=== PATIENT | male | born 1970 | race Caucasian/White ===

== ENCOUNTER 2017-05-29 08:42 | Inpatient (IN) | payer OTHER ==
[2017-05-29] VITALS (8 sets, daily range): BP systolic 100–152; BP diastolic 58–97
[~2017-05-29] VITALS: Ht 185.4 cm; Wt 142.9 kg
--- NOTE | ~2017-05-29 | CON ---
[place], [place] REPORT OF CONSULTATION NAME: BRIAN SAM UNIT #: [id number] ROOM: 515 DOCTOR: TALHA DE LOS SANTOS MD BIRTHDATE: [birth year] DOS: REQUESTING PHYSICIAN: Dr. Ivan Manrique. REASON FOR CONSULTATION: Chest pain. ASSESSMENT: 1. Current presentation with chest pains following a bout of cough. 2. Hypertension. 3. Hyperlipidemia. 4. Chronic obstructive pulmonary disease. 5. Active tobacco abuse. 6. Morbid obesity. 7. Abnormal CT scan with possible evidence of bronchitis. 8. Negative VQ scan for pulmonary embolism. 9. Elevated troponin. PLAN: 1. Continue to cycle troponin. 2. Check CPK-MB. 3. Echocardiogram. 4. Keep patient n.p.o. for a walking stress test in the a.m. 5. Exercise, weight loss. 6. Smoking cessation. 7. Management of the patient's bronchitis will be deferred to PCP. 8. Followup in our clinic within 4-6 days upon discharge. 9. Call for any change in symptoms. HISTORY AND PHYSICAL: The patient is a pleasant 47-year-old gentleman unknown to our practice, was referred by Dr. Love for evaluation of complaint of chest pain. Apparently, the patient having these episodes for the past few months, but mainly after coughing. The patient over the past 4 days has been coughing. He had significant increase in the bouts of coughing and he had significant episode of chest pain, which was left-sided, localized and can be pinpointed, did reach 6/10, but prolonged for hours. Upon presentation, the patient was admitted from the Emergency Room and the subsequent troponin which showed as elevated troponin as noted above. From the cardiac point of view, he never had any heaviness or tightness. No jaw pain, no left arm pain, no back pain. The patient never had any symptomatic palpitation or any associated dizziness, lightheadedness or near syncope. He sleeps on 2 pillows with no reported PND, orthopnea, or pedal edema. The patient has been reporting some weakness and unsteady gait with over exertion along with shortness of breath, even though the patient claimed that his functional capacity has been steady over the past 6 months. 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 No fever, no chills, no night sweats, maintained good appetite, no weight loss. PAST MEDICAL HISTORY: As detailed in my assessment. [place], [place] REPORT OF CONSULTATION NAME: BIRAN SAM UNIT #: [id number] ROOM: [facility] DOCTOR: TALHA DE LOS SANTOS MD BIRTHDATE: [birth year] SOCIAL HISTORY: The patient continued to smoke, has been doing this since he was 7 years old, about 1 pack a day. Alcohol: The patient quit abusing alcohol long time ago and no drug abuse. CURRENT MEDICATIONS: Guaifenesin, Mobic, Claritin, Zyrtec, Levaquin, hydrochlorothiazide, Lovenox, Coreg, aspirin, Solu-Medrol, and Lipitor. ALLERGIES: The patient is allergic to PENICILLIN and IODINE. REVIEW OF SYSTEMS: Currently, the patient denies any headache, diplopia or blurry vision. No fever, no chills, no night sweats. No abdominal pain, no bright red blood per rectum. No tarry stools. The patient admits to joint pain, but no muscular pain. Admits to low back pain. No polyuria, no polydipsia. No anxiety, no depression. No skin rash. Review of other systems has been negative. PHYSICAL EXAMINATION: GENERAL: The patient is alert, oriented x 3, quite pleasant. VITAL SIGNS: Blood pressure 161/82, heart rate 69, respiratory rate of 14, temperature 97.8. HEENT: Extraocular muscles intact. Pupils equal, round, reactive to light. Conjunctivae: No pallor. Throat: No petechiae. NECK: Good carotid upstroke. Unable to appreciate any bruit, no lymphadenopathy, no thyromegaly. HEART: S1, S2 with faint holosystolic murmur left upper sternal border, distant heart sounds. No rub. No retrosternal heave. CHEST AND BACK: No deformities. LUNGS: Clear to auscultation. Decreased air movement, but no kadie wheezing or rales. ABDOMEN: Morbidly obese, soft, nontender, present bowel sounds, no masses, no bruits. LOWER EXTREMITIES: There is mild ankle edema bilateral with faint distal pulses. NEUROLOGIC: Grossly nonfocal. SKIN: No significant rash. LABORATORY DATA: EKG showed normal sinus rhythm with poor R-wave progression. LABORATORY DATA: White count is currently 17.6, hemoglobin 16.0. Potassium 3.7, glucose is 202. Hemoglobin A1c is 7. Triglyceride 339. Total cholesterol 212, LDL 113 and HDL 31. Normal thyroid function test. [place], [place] REPORT OF CONSULTATION NAME: BRIAN SAM UNIT #: [id number] ROOM: [facility] DOCTOR: TALHA DE LOS SANTOS MD BIRTHDATE: [birth year] TALHA DE LOS SANTOS MD CM:CONSTR:REPORT OF CONSULTATION 1252 05/30/172032 interface
--- NOTE | ~2017-05-29 | ST ---
[place], [place] EXERCISE STRESS TEST REPORT NAME: BRIAN SAM UNIT #: [id number] ROOM: [facility] DOCTOR: TALHA DE LOS SANTOS MD BIRTHDATE: [birth year] DOS: INDICATION: Chest pain. PROCEDURE: The patient was exercised on a treadmill using modified Adalberto protocol, the patient exercised for 8 minutes, reaching only 67% of his maximum predicted heart rate. Test was switched to a walking Lexiscan stress test. The patient was injected with Lexiscan. The patient tolerated the procedure well. There was no complaint of chest pain, chest pressure. BLOOD PRESSURE RESPONSE: Resting blood pressure 152/80 with ending blood pressure 166/100. ELECTROCARDIOGRAM INTERPRETATION: The resting electrocardiogram showing normal sinus rhythm. Following at the peak of the stress test, there was no evidence of any significant ST or T-wave changes suggestive of myocardial ischemia. No arrhythmias were noted. SUMMARY: 1. Adequate stress test with impaired functional capacity. 2. Negative treadmill stress test for stress-induced myocardial ischemia. 3. No arrhythmias were seen. 4. Slightly hypertensive at rest with hypertensive diastolic blood pressure response to exercise. 5. Stable O2 saturation with exercise, lowest measurement was 91% with activity. 6. Nuclear images will be reported separately. TALHA DE LOS SANTOS MD CM:STRESS:EXERCISE STRESS TEST REPORT [id number] TALHA DE LOS SANTOS MD
--- NOTE | ~2017-05-29 | PR ---
[place], [place] PROGRESS NOTE NAME: BRIAN SAM #: [id number] UNIT #: [id number] ROOM: 515 DOCTOR: TALHA DE LOS SANTOS MD BIRTHDATE: [birth year] DOS: SUBJECTIVE: The patient continues to have chest pain following a bout of cough, which is again localized in the left side. No symptomatic palpitation. OBJECTIVE: VITAL SIGNS: Blood pressure 145/75, heart rate 67, respiratory rate of 14, temperature 98.2. NECK: Good upstroke, no bruit. HEART: S1, S2, no rub. LUNGS: Decreased air movement, but no kadie wheezing or rales. LOWER EXTREMITIES: Mild ankle edema. LABORATORY DATA: White count 14.3, hemoglobin 15.3, potassium 4.5, GFR more than 60%. Troponin 0.084, followed by 0.082 and then 0.080, subsequent 0.066 and then 0.57. CPK and MB are normal. ASSESSMENT AND PLAN: Current presentation with atypical complaint of chest pain that is okay, is only following a bout of cough, which is also localized and reproducible, and the patient showing slightly elevated troponin in a declining fashion with normal CPK and MB. The patient is showing slight improvement. His EKG did not show any acute changes. Our plan was to proceed with stress test with Lexiscan to be done this morning. Should the stress test be normal, we will discharge the patient home with early followup within 2-4 weeks as an outpatient. The patient was advised to call back should there be any worsening of his pain at any time. Exercise and weight loss is highly recommended. The patient also was advised to call back for any worsening of his symptoms at any time. TALHA DE LOS SANTOS MD CM:PNCAMACHO 24 TALHA DE LOS SANTOS MD 05/31/172224 interface
[2017-05-29 09:00] LABS: BASO % 0.4 % (0.0-1.0); EOS # 0.1 10*3/uL (0.0-0.4); EOS % 0.9 % (1.0-4.0); HEMATOCRIT 48.7 % (42.0-52.0); HEMOGLOBIN 15.8 g/dl (14.0-18.0); LYMPH # 1.9 10*3/uL (1.3-4.4); LYMPH % 18.9 % (27.0-41.0); MEAN CELL VOLUME 98.2 fl (80.0-94.0); MEAN CORPUSCULAR HGB 31.9 pg (27.0-31.0); MEAN CORPUSCULAR HGB CONC 32.4 g/dl (33.0-37.0); MEAN PLATELET VOLUME 11.4 fl (9.6-12.3); MONO # 0.7 10*3/uL (0.1-1.0); MONO % 6.8 % (3.0-9.0); NEUT # 7.3 10*3/uL (2.3-7.9); NEUT % 72.6 % (47.0-73.0); PLATELET COUNT AUTOMATED 151 10*3/uL (130-400); RED BLOOD COUNT 4.96 10*6/uL (4.50-5.90); RED CELL DISTRI WIDTH 14.5 % (0-14.5)
[2017-05-29 09:09] LABS: ACT PARTIAL THROMBO TIME 23.2 SECONDS (20.8-31.5); INTERNATIONAL NORM RATIO 0.9 (2.0-3.5)
[2017-05-29 09:17] LABS: ALBUMIN 3.2 gm/dl (3.1-4.5); ALKALINE PHOSPHATASE 168 U/L (45-117); BUN 6 mg/dl (7-24); CHLORIDE 100 mmol/L (98-107); CREATININE 0.99 mg/dL (0.70-1.30); MAGNESIUM 2.1 mg/dL (1.5-2.1); POTASSIUM 3.8 mmol/L (3.5-5.1); SGOT/AST 19 IU/L (3-35); SGPT/ALT 36 U/L (12-78); SODIUM 137 mmol/L (136-145); TOTAL PROTEIN 7.4 gm/dL (6.4-8.2)
[2017-05-29 09:25] LABS: TROPONIN I 0.084 ng/ml (<0.045)
--- NOTE | 2017-05-29 10:30 | NUR ---
A 47, admitted to , under the services of FRENCH Borden DO with a diagnosis of CHEST PAIN. Chief complaint is LEFT SIDED CHEST TIGHTNESS. Patient arrived via bed from ER. Monitor applied. Initial assessment completed. Vital signs taken and recorded. FRENCH BORDEN DO notified of admission to the unit. Orders received. See assessment for past medical history, medications and allergies. Patient and/or family oriented to unit. [facility] visitation policy reviewed. Clothing/patient valuable form completed. TREMAINE VIGIL
[2017-05-29] MEDS ORDERED: ZESTORETIC 20-1 EAC1 PO (11:16)
[2017-05-29] MEDS ORDERED: MOBIC7.5 MG PO (12:28)
[2017-05-29] MEDS ORDERED: ASPIRIN ADULT L81 M1 PO (12:28)
[2017-05-29] MEDS ORDERED: CLARITIN10 MG PO (12:29)
[2017-05-29] MEDS ORDERED: PROAIR HFA8.5 GM INH (12:30)
[2017-05-29] MEDS ORDERED: LIPITOR40 MG PO (12:30)
[2017-05-29] MEDS ORDERED: COREG3.125 MG PO (12:30)
[2017-05-29] MEDS ORDERED: OMEPRAZOLE20 M2 PO (12:31)
[2017-05-29] MEDS ORDERED: NITROSTAT0.4 MG SL (12:31)
--- NOTE | 2017-05-29 18:42 | NUR ---
DR BARONE NOTIFIED OF CONSULT. NEW ORDERS RECEIVED.
[2017-05-30] VITALS: BP 151/82
--- NOTE | 2017-05-30 | NUR ---
RESTING IN BED; CPAP ON. CALL LIGHT WITHIN REACH.
--- NOTE | 2017-05-30 06:00 | NUR ---
SITTING UP ON CHAIR IN ROOM. VOICES NO C/O AT THIS TIME. NO DISTRESS NOTED. PT. REMAINS NPO FOR POSSIBLE STRESS TEST THIS A.M.
[2017-05-30 06:41] LABS: BASO % 0.1 % (0.0-1.0); HEMATOCRIT 48.8 % (42.0-52.0); LYMPH # 1.2 10*3/uL (1.3-4.4); LYMPH % 8.5 % (27.0-41.0); MEAN CELL VOLUME 96.8 fl (80.0-94.0); MEAN CORPUSCULAR HGB 31.7 pg (27.0-31.0); MEAN CORPUSCULAR HGB CONC 32.8 g/dl (33.0-37.0); MEAN PLATELET VOLUME 11.6 fl (9.6-12.3); MONO # 0.4 10*3/uL (0.1-1.0); MONO % 3.2 % (3.0-9.0); NEUT # 11.9 10*3/uL (2.3-7.9); NEUT % 87.4 % (47.0-73.0); PLATELET COUNT AUTOMATED 162 10*3/uL (130-400); RED BLOOD COUNT 5.04 10*6/uL (4.50-5.90); RED CELL DISTRI WIDTH 14.4 % (0-14.5); WHITE BLOOD COUNT 13.6 10*3/uL (4.8-10.8)
[2017-05-30 07:14] LABS: ACT PARTIAL THROMBO TIME 23.1 SECONDS (20.8-31.5)
[2017-05-30 07:18] LABS: ALBUMIN 3.2 gm/dl (3.1-4.5); ALKALINE PHOSPHATASE 144 U/L (45-117); BUN 15 mg/dl (7-24); CHLORIDE 98 mmol/L (98-107); CHOLESTEROL 212 mg/dL (<200); CREATININE 0.97 mg/dL (0.70-1.30); HDL CHOLESTEROL 31 mg/dl (40-60); LDL CHOLESTEROL 113 mg/dL (9-159); MAGNESIUM 2.1 mg/dL (1.5-2.1); PHOSPHOROUS 3.3 mg/dL (2.5-4.9); POTASSIUM 3.7 mmol/L (3.5-5.1); SGOT/AST 14 IU/L (3-35); SGPT/ALT 34 U/L (12-78); SODIUM 136 mmol/L (136-145); TOTAL PROTEIN 7.4 gm/dL (6.4-8.2); TRIGLYCERIDES 339 mg/dl (<150); VLDL CHOLESTEROL 68 mg/dL (6-40)
[2017-05-30 07:24] LABS: THYROID STIM HORMONE (HS) 0.619 uIU/ml (0.358-4.75)
[2017-05-30 08:00] VITALS: BP 165/77
[2017-05-30 08:16] LABS: VITAMIN D, 25-HYDROXY 31.5 ng/mL (30-100)
--- NOTE | 2017-05-30 09:00 | NUR ---
Fleet Assistant in to talk to patient. Patient states lives at home with . There are few steps in the home. Physician: naye Pharmacy: [facility] Home health services: none Patient's level of ADLs: INDEPENDENT Patient has working utilities: all working DME: cpap Follow-up physician's appointment after d/c: will be made by hospitalist nurse director upon discharge Does patient want to access PORTAL?: no Discharge plan discussed with patient, patient lives at home with , states he gets around fine, patient states he will be going back home and denies any home needs. ZEHRA VIEIRA
[2017-05-30 12:00] VITALS: BP 161/82
[2017-05-30 16:00] VITALS: BP 122/73
--- NOTE | 2017-05-30 19:50 | NUR ---
UPON ENTERING PATIENT'S ROOM PT. C/O LEFT SIDED CHEST PAIN & STATED THAT AFTER HE COUGHED HE FELT A "POP." VITAL SIGNS TAKEN & RECORDED; SEE FLOW SHEET.
[2017-05-30 19:55] VITALS: BP 160/82
[2017-05-30 20:00] VITALS: BP 160/82
--- NOTE | 2017-05-30 20:00 | NUR ---
CALLED DR. CHAPPELL; NEW ORDERS RECEIVED FOR STAT EKG, TROPONINS & XRAY OF RIBS/CHEST.
--- NOTE | 2017-05-30 20:16 | NUR ---
MEDICATED WITH MS FOR C/O LEFT SIDED CHEST PAIN.
--- NOTE | 2017-05-30 20:20 | NUR ---
PT. TAKEN TO RADIOLOGY VIA WHEELCHAIR ACCOMPANIED BY Lisa
--- NOTE | 2017-05-30 21:52 | NUR ---
MEDICATED WITH NORCO FOR C/O LEFT SIDED CHEST PAIN.
--- NOTE | 2017-05-30 23:30 | NUR ---
PT. RESTING IN BED; PAIN MEDICATION GIVEN EARLIER APPARENTLY EFFECTIVE.
[2017-05-31] VITALS: BP 150/90
--- NOTE | 2017-05-31 00:13 | NUR ---
MEDICATED WITH MS SLOW IV PUSH FOR C/O LEFT SIDED CHEST PAIN FROM COUGHING.
--- NOTE | 2017-05-31 02:00 | NUR ---
RESTING IN BED WITH EYES CLOSED. PAIN MEDICATION GIVEN EARLIER APPARENTLY EFFECTIVE.
[2017-05-31 04:53] LABS: BASO % 0.1 % (0.0-1.0); HEMATOCRIT 47.8 % (42.0-52.0); HEMOGLOBIN 15.3 g/dl (14.0-18.0); LYMPH # 1.5 10*3/uL (1.3-4.4); LYMPH % 10.8 % (27.0-41.0); MEAN CORPUSCULAR HGB 31.7 pg (27.0-31.0); MEAN PLATELET VOLUME 11.6 fl (9.6-12.3); MONO # 0.5 10*3/uL (0.1-1.0); MONO % 3.7 % (3.0-9.0); NEUT # 12.1 10*3/uL (2.3-7.9); PLATELET COUNT AUTOMATED 146 10*3/uL (130-400); RED BLOOD COUNT 4.83 10*6/uL (4.50-5.90); RED CELL DISTRI WIDTH 14.6 % (0-14.5); WHITE BLOOD COUNT 14.3 10*3/uL (4.8-10.8)
[2017-05-31 05:12] LABS: BUN 20 mg/dl (7-24); CHLORIDE 96 mmol/L (98-107); CREATININE 1.11 mg/dL (0.70-1.30); POTASSIUM 4.5 mmol/L (3.5-5.1); SODIUM 135 mmol/L (136-145)
[2017-05-31 08:00] VITALS: BP 145/75
--- NOTE | 2017-05-31 08:00 | NUR ---
PATIENT IN BED, HOB ELEVATED. VITALS WNL. PATIENT APPEARS STABLE. NO COMPLAINTS VOICED AT THIS TIME. RESPIRATIONS EASY AND UNLABORED. ALL SAFETY MEASURES IN PLACE. CALL LIGHT IN REACH.
--- NOTE | 2017-05-31 09:00 | NUR ---
PATIENT TRANSPORTED OFF OF FLOOR VIA WHEELCHAIR FOR SCHEDULED STRESS TEST AT THIS TIME.
--- NOTE | 2017-05-31 09:00 | NUR ---
case management visits with patient, patient denies any home needs
--- NOTE | 2017-05-31 10:15 | NUR ---
INFORMED CONSENT SIGNED FOR CARDIOLYTE STRESS TEST WITH DR. DE LOS SANTOS. PT C/O CHEST PAIN UPON LYING DOWN. STATES IT IS A 10/10 AND IS THERE MOST OF TIME. RESING EKG NSR WITH PVC'S. HR 67, BP 144/88, PULSE OX 96%. COMPLETED 8:00 OF A MODIFIED LIDA PROTOCOL STRESS TEST COMPLETING 2:00 STAGE III, 1.7 MPH, 10% GRADE. UNABLE TO REACH 85% PREDICTED HEART RATE D/T FATIGUE. LEXISCAN GIVEN AT 10:11. PEAK HEART RATE OF 116 ACHIEVED WHICH IS 66% PREDICTED MAXIMUM AND A PEAK BP OF 166/100. PULSE OF REMAINED 91%-96% THROUGHOUT TEST. C/O FEELING WIERD AFTER LEXISCAN INJECTION. TEST TERMINTATED AT PHYSICIANS DISCRETION. LAST RECOVERY HR 92, BP BP 154/96. WAITING NUCLEAR SCANNING IN STABLE CONDITION.
[2017-05-31 12:00] VITALS: BP 150/90
[2017-05-31] MEDS ORDERED: ATORVASTATIN CA80 M1 PO (13:47)
[2017-05-31] MEDS ORDERED: LEVAQUIN500 M2 PO (13:47)
[2017-05-31] MEDS ORDERED: PREDNISONE10 MG PO (13:47)
[2017-05-31] MEDS ORDERED: Zestril,Prinivi40 MG PO (13:47)
[2017-05-31] MEDS ORDERED: MUCINEX ER600 MG PO (13:47)
[2017-05-31] MEDS ORDERED: HYDR25T PO (13:47)
--- NOTE | 2017-05-31 15:15 | NUR ---
Discharge instructions reviewed with patient/family. Patient receptive and verbalizes understanding. Follow-up care arranged. Written instructions given to patient/family. TREMAINE VIGIL
== END 2017-05-31 15:15 | disposition home or self-care (01) | DRG 189 ==
LOC: ED 08:42 → 5E 09:44 → EDHOLD 09:44 → 5E 09:50
PROVIDERS: Emergency Medicine; Internal Medicine; Internal Medicine Hospice and Palliative Medicine; ADMIT Internal Medicine
PROC: 4A02XM4 Measurement of Cardiac Total Activity, External Approach (ICD-10-PCS; principal; 2017-05-31)
PROC: 3E073KZ Introduction of Other Diagnostic Substance into Coronary Artery, Percutaneous Approach (ICD-10-PCS; 2017-05-31)
DX: J96.20 Acute and chronic respiratory failure, unspecified whether with hypoxia or hypercapnia (principal); E44.0 Moderate protein-calorie malnutrition; J44.1 Chronic obstructive pulmonary disease with (acute) exacerbation; Z68.41 Body mass index [BMI] 40.0-44.9, adult; I25.2 Old myocardial infarction; E66.01 Morbid (severe) obesity due to excess calories; E78.5 Hyperlipidemia, unspecified; R07.89 Other chest pain; I10 Essential (primary) hypertension; Z71.6 Tobacco abuse counseling; Z72.0 Tobacco use; Z88.0 Allergy status to penicillin; Z88.8 Allergy status to other drugs, medicaments and biological substances; Z82.49 Family history of ischemic heart disease and other diseases of the circulatory system; Z91.041 Radiographic dye allergy status; Z79.82 Long term (current) use of aspirin; Z79.899 Other long term (current) drug therapy; Z80.42 Family history of malignant neoplasm of prostate

== ENCOUNTER 2018-06-07 08:12 | Inpatient (IN) | payer OTHER ==
[~2018-06-07] VITALS: Ht 185.4 cm; Wt 139.3 kg
--- NOTE | ~2018-06-07 | PR ---
[place], [place] PROGRESS NOTE NAME: BRIAN SAM UNIT #: [id number] ROOM: 416 DOCTOR: MARIO PAULSON MD BIRTHDATE: [birth year] DOS: 06/09/2018 SUBJECTIVE: The patient was seen today 06/09/2018 in the Cardiology Department just prior to a stress test. He is a 48-year-old man with a long history of tobacco abuse, who suffered a myocardial infarction in 2010. He has had 3 subsequent catheterizations at [facility], but did not require any percutaneous interventions. The most recent of these was in 2015. We have requested the records, but have not yet received a response. Overnight, he has felt better. His breathing has improved. PHYSICAL EXAMINATION: VITAL SIGNS: Today, his pulse is 63 and regular, blood pressure was 122/58 earlier, but 162/90 just prior to the stress test. NECK: Supple. He had no jugular distention. Carotids were full. LUNGS: Respirations are unlabored. CHEST: Clear. HEART: Has a regular rhythm with an S4 gallop. EXTREMITIES: Showed no edema. He does seem to be stable from a cardiac standpoint, but the etiology of his chest discomfort is not yet clear and he does have a history of coronary artery disease. IMPRESSION: 1. Atypical chest pain. 2. History of coronary artery disease, status post myocardial infarction around 2010 per his report. 3. History of heavy cigarette abuse. The patient has decreased the volume of cigarettes he consumes, but still does smoke about a half pack of cigarettes a day. 4. Chronic obstructive lung disease. 5. Obesity. 6. Hypertension. 7. Hyperlipidemia. 8. Obstructive sleep apnea. PLAN: We will proceed with a pharmacologic stress test today to reassess cardiac perfusion and the amount of myocardium that is still at risk. We will again request records from the [facility] regarding his catheterization. Further recommendations will depend upon the results of his stress test and review of old records. I thank the hospitalist physicians for asking our advice regarding his care. [place], [place] PROGRESS NOTE NAME: BRIAN SAM UNIT #: [id number] ROOM: 416 DOCTOR: MARIO PAULSON MD BIRTHDATE: [birth year] MARIO PAULSON MD CM:ROSE 1029 MARIO PAULSON MD 06/09/18 1221 interface
--- NOTE | ~2018-06-07 | EKG ---
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 Electronically Signed On 06-07-2018 15:51:24 PDT by Britton Tapia MD CM:EKGRPT:ELECTROCARDIOGRAM REPORT [id number] 1551 DANIELITO MURO DRAFT REPORT DANIELITO MARTÍNEZ MD
--- NOTE | ~2018-06-07 | PR ---
[place], [place] PROGRESS NOTE [id number] UNIT #: [id number] ROOM: 416 DOCTOR: MARIO PAULSON MD BIRTHDATE: [birth year] DOS: 06/08/2018 CARDIOLOGY PROGRESS NOTE SUBJECTIVE: The patient was seen today at his bedside on 06/08/2018 for followup of atypical chest pain and hypertension. He is a 48-year-old man with a long history of tobacco abuse, who states that he suffered a myocardial infarction in 2010. He tells me he has had three catheterizations at the [facility]. He was told he had "mild disease" and did not require any percutaneous interventions. His most recent catheterization per his report was 2015. We have requested this from the [facility], but have not yet received a response. He presented now with chest pains and minimal elevation in troponin, but no specific EKG changes. He has nonspecific T-wave flattening only. Review of old records indicates that he was hospitalized for severe similar at event 1 year ago at which time, troponins were also elevated and a subsequent pharmacologic stress test was normal. In the hospital, he has felt well and denies any further chest discomfort. PHYSICAL EXAMINATION: VITAL SIGNS: Today, his pulse is 60 and regular, blood pressure is 172/76. He is afebrile. NECK: Supple. He has no jugular distention. Carotids are full. LUNGS: Respirations are unlabored. Chest is clear to auscultation and percussion. He has no presacral edema or chest wall tenderness. HEART: Has a regular rhythm. He has a fourth heart sound, but no third heart sound or murmur. ABDOMEN: Soft and normally active without masses, organomegaly or bruits. EXTREMITIES: Showed no edema. Pedal pulses were full. He had no palpable cords or swelling. LABORATORY DATA: Hemoglobin is 16.4, white count 9500, platelet count 147,000. Sodium 130, potassium 3.5, BUN 9, creatinine 0.9. Peak troponin level was 0.076. IMPRESSION: 1. Atypical chest pain. The patient does not have electrocardiographic changes typical of an acute myocardial infarction and his troponin elevations suggest a type 2 injury or chronic troponin elevation. 2. History of coronary artery disease, status post myocardial infarction around 2010 per his report. 3. History of heavy cigarette abuse. He has decreased the volume of cigarettes he consumes, but he still does smoke. 4. Chronic obstructive pulmonary disease. 5. Obesity. 6. Hypertension. 7. Hyperlipidemia. 8. Obstructive sleep apnea. [place], [place] PROGRESS NOTE NAME: BRIAN SAM UNIT #: [id number] ROOM: [facility] DOCTOR: MARIO PAULSON MD BIRTHDATE: [birth year] PLAN: We will await the results of his catheterizations from the [facility]. We will continue his evaluation with a pharmacologic myocardial perfusion study within the next 24 hours. Further recommendations will depend upon the results of the test. In the interim, I will be starting him on losartan, in addition to his beta judith to help lower his blood pressure. I thank the hospitalist physicians for asking our advice regarding his care. MARIO PAULSON MD CM:PNTRANS [id number] MARIO PAULSON MD 06/08/182222 interface
--- NOTE | ~2018-06-07 | CON ---
[place], [place] REPORT OF CONSULTATION NAME: BRIAN SAM UNIT #: [id number] ROOM: 416 DOCTOR: MARIO PAULSON MD BIRTHDATE: [birth year] DOS: 06/07/2018 REASON FOR CONSULTATION: Chest pain. HISTORY OF PRESENT ILLNESS: The patient is a 48-year-old man who has a long history of tobacco abuse. He states that at one time he was smoking upwards of 5 packs of cigarettes a day. He states that he had a myocardial infarction in 2010. He was evaluated at the [facility] where catheterization in 2010 or 2011 showed mild disease per his report. He states that he did not have anything "bad enough to treat." He states he has had a total of three catheterizations, but no percutaneous interventions or bypass. His most recent catheterization, he believes was in 2015. He has had intermittent chest pains, but nothing like his previous myocardial infarction. For the last several days, he has been constipated. He took a laxative with only minimal success and therefore he took another laxative. He stated that this caused nausea and vomiting. Associated with this he did have left anterior chest discomfort associated with diaphoresis and shortness of breath. The pain radiated into his epigastrium as well. He became concerned and therefore came to the Emergency Room. Since he has been in the Emergency Room and hospitalized his electrocardiograms have shown no acute changes. He does have nonspecific T-wave flattening. Serial troponin levels have been minimally elevated at about 0.07. Review of his old records indicates that he was hospitalized for a similar event about 1 year ago at which time his troponin levels were elevated a similar amount. He did undergo a pharmacologic stress test at that time, which showed normal perfusion and an ejection fraction of 68%. PAST MEDICAL HISTORY: Includes 1. Obesity. 2. Heavy cigarette abuse (upwards of 5 pack of cigarettes per day) patient is trying to quit and is down to 1/2 pack of cigarettes a day. 3. Obstructive lung disease. 4. Coronary artery disease. 5. Essential hypertension. 6. Hyperlipidemia. 7. Obstructive sleep apnea. The patient does use CPAP at night. 8. Myocardial infarction in around 2010. The patient states that he has had 3 catheterizations between 2010 and 2015, but has never had a percutaneous intervention done. REVIEW OF SYSTEMS: The patient denies diplopia or loss of vision, and lightheadedness or syncope. He denies fevers, chills, sweats or recent weight change. He has had chest discomfort as noted above. He has had some nausea and vomiting and he has had increased dyspnea and diaphoresis associated with the chest pain. He denies hemoptysis or hematemesis. He denies change in his bladder habits and has not had any blood in his stools or urine. As noted, he has been constipated recently. He denies any recent weight change. He denies any history of blood clots in his legs and has not had any recent leg swelling. He has not had any fevers, chills, heat intolerance or cold intolerance. He [place], [place] REPORT OF CONSULTATION NAME: BRIAN SAM UNIT #: [id number] ROOM: [facility] DOCTOR: MARIO PAULSON MD BIRTHDATE: [birth year] denies polyuria or polydipsia. The remainder of the review of systems is negative except as noted above. MEDICATIONS: Prior to admission, Symbicort 2 puffs q.12 hours, aspirin 81 mg per day, carvedilol 3.125 mg daily, hydrochlorothiazide 25 mg daily, lisinopril 40 mg daily, meloxicam 7.5 mg daily, omeprazole 20 mg daily, and simvastatin 20 mg at bedtime. ALLERGIES: PENICILLIN AND IODINE. FAMILY HISTORY: The patient states that everybody in his family has hypertension. Brother has diabetes. His mother had a heart attack in her 70s. 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 He does smoke a half pack of cigarettes a day at the present time and has smoked an excess of 5 packs a day in the past. He consumes minimal amounts of alcohol and no drugs. PHYSICAL EXAMINATION: GENERAL: The patient is an overweight white male who is awake, alert and oriented. VITAL SIGNS: Pulse is 63 and regular, blood pressure is 188/96. He is afebrile. He weighs 139.3 kg and has a body mass index of 40.5. HEENT: Normocephalic, atraumatic. Extraocular muscles are intact. Sclerae are clear. Pupils equal, round and react to light. The oral mucosa is moist. Tongue is midline. NECK: Supple. He has no jugular distention. Carotids are full and I heard no bruits. He had no neck or supraclavicular masses, no thyromegaly. LUNGS: Respirations are unlabored. His chest is clear to auscultation and percussion. He has no presacral edema and no chest wall tenderness. CARDIOVASCULAR: His heart has a regular rhythm. He has a fourth heart sound, but no third heart sound or murmur. The PMI is not displaced. There is no precordial heave, lift or thrill. ABDOMEN: Soft and normally active without masses, organomegaly or bruits. EXTREMITIES: Showed no edema. He had no palpable cords. He had no Homans sign. Pedal pulses were easily palpated in the feet bilaterally. I reviewed his electrocardiogram which showed sinus rhythm with poor precordial R-wave progression, nonspecific T-wave flattening. Troponin levels are minimally elevated at around 0.07. Sodium is 136, potassium 3.6, BUN 11, creatinine 0.94. Sugar was 292, hemoglobin 16.6, hematocrit 51.2. There are 10,800 white cells and 161,000 platelets present. IMPRESSIONS: 1. Atypical chest pain. The patient does not demonstrate electrocardiographic changes or atypical troponin elevation pattern to suggest an acute myocardial injury due to coronary artery disease. 2. History of coronary artery disease, status post myocardial infarction around 2010. 3. Heavy cigarette abuse, which is ongoing. [place], [place] REPORT OF CONSULTATION NAME: BRIAN SAM UNIT #: [id number] ROOM: 416 DOCTOR: MARIO PAULSON MD BIRTHDATE: [birth year] 4. Chronic obstructive pulmonary disease. 5. Obesity. 6. Hypertension. 7. Hyperlipidemia. 8. Obstructive sleep apnea treated with a CPAP. PLAN: The patient is being treated with low-molecular weight heparin and acid reducing medications. He is also on low dose aspirin, very low dose beta judith, a statin and several medications for his breathing. I think that some of his problems are certainly related to obstructive lung disease and bronchitis, but given a history of previous myocardial infarction I think that further evaluation is appropriate prior to his discharge. The patient tells me that he has had several catheterizations at the [facility]. The most recent of these was within the last 2 years and we will be requesting those reports. I would like to keep him in the hospital until we have had a chance to do a pharmacologic stress test on him on 06/09/2018. Further recommendations depend upon the results of the stress test. He certainly should do everything in his power to improve his risk factor profile. This should include immediate cigarette cessation, tight control of his blood pressure, tight control of his lipids, etc. I thank the hospitalist physicians for asking our advice regarding his care. MARIO PAULSON MD CM:CONSTR:REPORT OF CONSULTATION 1610 06/08/18 0227 interface
--- NOTE | ~2018-06-07 | EKG ---
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 Electronically Signed On 06-07-2018 15:52:15 PDT by Britton Tapia MD CM:EKGRPT:ELECTROCARDIOGRAM REPORT [id number] DANIELITO MURO DRAFT REPORT DANIELITO MARTÍNEZ MD
--- NOTE | ~2018-06-07 | EKG ---
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
[~2018-06-07 08:12] MED LIST: ASPIRIN ADULT L81 M1 PO; ATORVASTATIN CA80 M1 PO; CLARITIN10 MG PO; COREG3.125 MG PO; HYDR25T PO; LEVAQUIN500 M2 PO; LIPITOR40 MG PO; MOBIC7.5 MG PO; MUCINEX ER600 MG PO; NITROSTAT0.4 MG SL; OMEPRAZOLE20 M2 PO; PREDNISONE10 MG PO; PROAIR HFA8.5 GM INH; ZESTORETIC 20-1 EAC1 PO; Zestril,Prinivi40 MG PO
[2018-06-07 08:15] VITALS: BP 162/102
[2018-06-07 08:32] LABS: BASO # 0.1 10*3/uL (0.0-0.1); BASO % 0.6 % (0.0-1.0); EOS % 0.3 % (1.0-4.0); HEMATOCRIT 51.2 % (42.0-52.0); HEMOGLOBIN 16.6 g/dl (14.0-18.0); LYMPH # 1.9 10*3/uL (1.3-4.4); LYMPH % 17.3 % (27.0-41.0); MEAN CELL VOLUME 95.5 fl (80.0-94.0); MEAN CORPUSCULAR HGB CONC 32.4 g/dl (33.0-37.0); MEAN PLATELET VOLUME 11.7 fl (9.6-12.3); MONO # 0.6 10*3/uL (0.1-1.0); MONO % 5.7 % (3.0-9.0); NEUT # 8.2 10*3/uL (2.3-7.9); NEUT % 75.8 % (47.0-73.0); PLATELET COUNT AUTOMATED 161 10*3/uL (130-400); RED BLOOD COUNT 5.36 10*6/uL (4.50-5.90); RED CELL DISTRI WIDTH 13.8 % (0-14.5); WHITE BLOOD COUNT 10.8 10*3/uL (4.8-10.8)
[2018-06-07 08:43] VITALS: BP 161/72
[2018-06-07 08:48] LABS: ACT PARTIAL THROMBO TIME 21.1 SECONDS (20.8-31.5)
[2018-06-07 08:50] LABS: ALBUMIN 3.5 gm/dl (3.1-4.5); ALKALINE PHOSPHATASE 182 U/L (45-117); BUN 11 mg/dl (7-24); CHLORIDE 98 mmol/L (98-107); CREATININE 0.94 mg/dL (0.70-1.30); LIPASE 316 U/L (73-393); POTASSIUM 3.6 mmol/L (3.5-5.1); SGOT/AST 24 IU/L (3-35); SGPT/ALT 43 U/L (12-78); SODIUM 136 mmol/L (136-145); TOTAL PROTEIN 7.7 gm/dL (6.4-8.2)
[2018-06-07 09:14] LABS: COLOR YELLOW (YELLOW)
[2018-06-07 09:15] LABS: BILIRUBIN NEGATIVE (NEGATIVE); BLOOD NEGATIVE (NEGATIVE); CLARITY CLEAR (CLEAR); GLUCOSE 3+ (NEGATIVE); KETONE NEGATIVE (NEGATIVE); LEUKO ESTERASE NEGATIVE (NEGATIVE); NITRITE NEGATIVE (NEGATIVE); SPECIFIC GRAVITY 1.015 (1.005-1.030); UROBILINOGEN 0.2 E.U./dl (0.2-1.0)
[2018-06-07 09:21] VITALS: BP 167/75
[2018-06-07 09:30] LABS: BACTERIA TRACE; MUCOUS 2+
[2018-06-07] MEDS ORDERED: MELOXICAM7.5 MG PO (09:38)
[2018-06-07] MEDS ORDERED: ZOCOR20 MG PO (09:39)
[2018-06-07] MEDS ORDERED: SYMB160 INH (09:40)
[2018-06-07 12:30] VITALS: BP 188/96
[2018-06-07 16:59] VITALS: BP 180/100
[2018-06-07 20:00] VITALS: BP 153/88
[2018-06-08] VITALS: BP 146/81
[2018-06-08 06:12] LABS: BASO % 0.4 % (0.0-1.0); EOS # 0.1 10*3/uL (0.0-0.4); EOS % 0.6 % (1.0-4.0); HEMATOCRIT 51.6 % (42.0-52.0); HEMOGLOBIN 16.4 g/dl (14.0-18.0); LYMPH # 1.8 10*3/uL (1.3-4.4); LYMPH % 19.1 % (27.0-41.0); MEAN CELL VOLUME 97.2 fl (80.0-94.0); MEAN CORPUSCULAR HGB 30.9 pg (27.0-31.0); MEAN CORPUSCULAR HGB CONC 31.8 g/dl (33.0-37.0); MEAN PLATELET VOLUME 11.9 fl (9.6-12.3); MONO # 0.7 10*3/uL (0.1-1.0); MONO % 7.2 % (3.0-9.0); NEUT # 6.9 10*3/uL (2.3-7.9); NEUT % 72.5 % (47.0-73.0); PLATELET COUNT AUTOMATED 147 10*3/uL (130-400); RED BLOOD COUNT 5.31 10*6/uL (4.50-5.90); RED CELL DISTRI WIDTH 13.8 % (0-14.5); WHITE BLOOD COUNT 9.5 10*3/uL (4.8-10.8)
[2018-06-08 06:46] LABS: ALBUMIN 3.2 gm/dl (3.1-4.5); ALKALINE PHOSPHATASE 170 U/L (45-117); BUN 9 mg/dl (7-24); CHLORIDE 99 mmol/L (98-107); CHOLESTEROL 131 mg/dL (<200); HDL CHOLESTEROL 25 mg/dl (40-60); LDL CHOLESTEROL 59 mg/dL (9-159); POTASSIUM 3.5 mmol/L (3.5-5.1); SGOT/AST 26 IU/L (3-35); SGPT/ALT 43 U/L (12-78); SODIUM 138 mmol/L (136-145); TOTAL PROTEIN 7.4 gm/dL (6.4-8.2); TRIGLYCERIDES 235 mg/dl (<150); VLDL CHOLESTEROL 47 mg/dL (6-40)
[2018-06-08 08:00] VITALS: BP 175/82
[2018-06-08 08:05] LABS: VITAMIN D, 25-HYDROXY 31.6 ng/mL (30-100)
[2018-06-08 12:00] VITALS: BP 172/76
[2018-06-08 16:00] VITALS: BP 162/94
[2018-06-08 20:00] VITALS: BP 122/58
[2018-06-09 08:00] VITALS: BP 132/58
[2018-06-09 12:00] VITALS: BP 150/84
[2018-06-09] MEDS ORDERED: GLUCOPHAGE500 MG PO (16:46)
[2018-06-09] MEDS ORDERED: LOSARTAN POTASS25 M1 PO (16:59)
[2018-06-09] MEDS ORDERED: METOPROLOL SUCC25 M2 PO (16:59)
== END 2018-06-09 17:11 | disposition home or self-care (01) | DRG 313 ==
LOC: ED 08:12 → EDHOLD 09:07 → 4E 09:07
PROVIDERS: Emergency Medicine; Student in an Organized Health Care Education/Training Program
PROC: 4A02XM4 Measurement of Cardiac Total Activity, External Approach (ICD-10-PCS; principal; 2018-06-09)
PROC: 3E073KZ Introduction of Other Diagnostic Substance into Coronary Artery, Percutaneous Approach (ICD-10-PCS; 2018-06-09)
DX: R07.89 Other chest pain (principal); Z68.41 Body mass index [BMI] 40.0-44.9, adult; R10.9 Unspecified abdominal pain; R14.0 Abdominal distension (gaseous); R74.8 Abnormal levels of other serum enzymes; K76.0 Fatty (change of) liver, not elsewhere classified; J44.9 Chronic obstructive pulmonary disease, unspecified; I10 Essential (primary) hypertension; E78.5 Hyperlipidemia, unspecified; R80.9 Proteinuria, unspecified; R81 Glycosuria; E11.65 Type 2 diabetes mellitus with hyperglycemia; E83.41 Hypermagnesemia; D72.9 Disorder of white blood cells, unspecified; K59.00 Constipation, unspecified; E78.00 Pure hypercholesterolemia, unspecified; I25.10 Atherosclerotic heart disease of native coronary artery without angina pectoris; G47.33 Obstructive sleep apnea (adult) (pediatric); E66.9 Obesity, unspecified; F17.210 Nicotine dependence, cigarettes, uncomplicated; Z88.0 Allergy status to penicillin; Z91.041 Radiographic dye allergy status; Z71.6 Tobacco abuse counseling; I25.2 Old myocardial infarction; Z82.49 Family history of ischemic heart disease and other diseases of the circulatory system; Z80.42 Family history of malignant neoplasm of prostate; Z79.82 Long term (current) use of aspirin

== ENCOUNTER 2022-10-04 02:47 | Emergency (ER) | payer OTHER ==
[~2022-10-04] VITALS: Ht 182.8 cm; Wt 136.1 kg
[~2022-10-04 02:47] MED LIST changes: +GLUCOPHAGE500 MG PO; +LOSARTAN POTASS25 M1 PO; +MELOXICAM7.5 MG PO; +METOPROLOL SUCC25 M2 PO; +SYMB160 INH; +ZOCOR20 MG PO
[2022-10-04 03:03] LABS: MEAN CELL VOLUME 91.8 fl (80.0-94.0); MEAN CORPUSCULAR HGB 28.7 pg (27.0-31.0); MEAN CORPUSCULAR HGB CONC 31.2 g/dl (33.0-37.0); MEAN PLATELET VOLUME 11.4 fl (9.6-12.3); PLATELET COUNT AUTOMATED 162 10*3/uL (130-400); RED BLOOD COUNT 6.73 10*6/uL (4.50-5.90); RED CELL DISTRI WIDTH 17.2 % (0-14.5); WHITE BLOOD COUNT 10.1 10*3/uL (4.8-10.8)
[2022-10-04 03:07] LABS: MANUAL DIFF REFLEX YES
[2022-10-04 03:09] LABS: HEMATOCRIT 61.8 % (42.0-52.0)
[2022-10-04 03:14] LABS: ACT PARTIAL THROMBO TIME 26.1 SECONDS (20.0-32.1)
[2022-10-04 03:23] LABS: ALKALINE PHOSPHATASE 156 U/L (46-116); BUN 13 mg/dl (9-23); CHLORIDE 97 mmol/L (98-107); POTASSIUM 4.3 mmol/L (3.4-5.1); SGPT/ALT 30 U/L (10-49); TOTAL PROTEIN 7.5 gm/dL (6.0-8.0)
[2022-10-04 03:31] VITALS: BP 146/81
[2022-10-04 03:32] LABS: ATYPICAL LYMPHS 4 % (0-0); PLATELET SUFFICIENCY NORMAL (NORMAL); TOTAL CELLS COUNTED 100 #CELLS
== END 2022-10-04 03:52 | disposition short-term general hospital (02) ==
LOC: ED 02:47
PROVIDERS: Emergency Medicine
DX: I21.3 ST elevation (STEMI) myocardial infarction of unspecified site (principal); D58.2 Other hemoglobinopathies; R74.8 Abnormal levels of other serum enzymes; E87.1 Hypo-osmolality and hyponatremia; E11.65 Type 2 diabetes mellitus with hyperglycemia; I10 Essential (primary) hypertension; I25.2 Old myocardial infarction; F17.200 Nicotine dependence, unspecified, uncomplicated; Z88.0 Allergy status to penicillin; Z79.899 Other long term (current) drug therapy; Z79.82 Long term (current) use of aspirin; Z87.891 Personal history of nicotine dependence

== ENCOUNTER → 2022-11-26 | Outpatient (CLI) | payer OTHER | END | disposition home or self-care (01) | LOC: RAD 00:39 | PROVIDERS: ATTEND Internal Medicine | DX: M25.712 Osteophyte, left shoulder (principal) ==

== ENCOUNTER 2023-08-27 13:06 | Emergency (ER) | payer OTHER ==
[~2023-08-27] VITALS: Ht 185.4 cm; Wt 129.3 kg
[2023-08-27 13:12] VITALS: BP 162/83
[2023-08-27] MEDS ORDERED: CEPHALEXIN500 M1 PO (14:25)
== END 2023-08-27 14:39 | disposition home or self-care (01) ==
LOC: ED 13:06
DX: S61.012A Laceration without foreign body of left thumb without damage to nail, initial encounter (principal); Z91.041 Radiographic dye allergy status; Z88.0 Allergy status to penicillin; Z95.5 Presence of coronary angioplasty implant and graft; F17.210 Nicotine dependence, cigarettes, uncomplicated; W26.8XXA Contact with other sharp object(s), not elsewhere classified, initial encounter; Y93.89 Activity, other specified; Y92.89 Other specified places as the place of occurrence of the external cause; Y99.8 Other external cause status

== ENCOUNTER 2024-04-29 21:31 | Emergency (ER) | payer OTHER ==
[~2024-04-29 21:31] MED LIST changes: +CEPHALEXIN500 M1 PO
[2024-04-29] MEDS ORDERED: Albuterol Sulf/Ipratropium 3 ML VIAL NEB ONE (22:05)
[2024-04-29] MEDS ORDERED: SODIUM CHLORIDE 0.9% 1,000 ML IV ONE (22:05)
[2024-04-29] MEDS ORDERED: methylPREDNISolone sod succ 125 MG VIAL IV ONE (22:05)
[2024-04-29] MEDS ORDERED: MORPHINE Sulfate 2 MG/ML SYR IV ONE (22:05)
[2024-04-29 22:32] LABS: BASO # 0.1 10*3/uL (0.0-0.1); BASO % 0.6 % (0.0-1.0); EOS # 0.1 10*3/uL (0.0-0.4); EOS % 0.5 % (1.0-4.0); HEMATOCRIT 54.6 % (42.0-52.0); LYMPH # 2.1 10*3/uL (1.3-4.4); LYMPH % 22.3 % (27.0-41.0); MEAN CORPUSCULAR HGB 31.9 pg (27.0-31.0); MEAN CORPUSCULAR HGB CONC 31.9 g/dl (33.0-37.0); MEAN PLATELET VOLUME 11.5 fl (9.6-12.3); MONO # 0.8 10*3/uL (0.1-1.0); MONO % 8.9 % (3.0-9.0); NEUT # 6.3 10*3/uL (2.3-7.9); NEUT % 67.4 % (47.0-73.0); PLATELET COUNT AUTOMATED 165 10*3/uL (130-400); RED BLOOD COUNT 5.46 10*6/uL (4.50-5.90); RED CELL DISTRI WIDTH 14.3 % (0-14.5); WHITE BLOOD COUNT 9.3 10*3/uL (4.8-10.8)
[2024-04-29 22:51] LABS: BUN 8 mg/dl (9-23); CHLORIDE 101 mmol/L (98-107)
[2024-04-29] MEDS ORDERED: Ketorolac Tromethamine 30 MG/ML VIAL IV ONE (23:30)
[2024-04-30] VITALS: BP 168/86
[2024-04-30] MEDS ORDERED: PREDNISONE20 M1 PO (01:10)
== END 2024-04-30 01:35 | disposition home or self-care (01) ==
LOC: ED 21:31
PROVIDERS: Nurse Practitioner Family
DX: B34.9 Viral infection, unspecified (principal); Z20.822 Contact with and (suspected) exposure to COVID-19; D75.89 Other specified diseases of blood and blood-forming organs; E11.65 Type 2 diabetes mellitus with hyperglycemia; J44.9 Chronic obstructive pulmonary disease, unspecified; I10 Essential (primary) hypertension; E78.5 Hyperlipidemia, unspecified; K21.9 Gastro-esophageal reflux disease without esophagitis; I25.2 Old myocardial infarction; Z88.0 Allergy status to penicillin; Z91.041 Radiographic dye allergy status; Z95.5 Presence of coronary angioplasty implant and graft; F17.200 Nicotine dependence, unspecified, uncomplicated

== ENCOUNTER 2024-10-03 15:38 | Inpatient (IN) | payer OTHER ==
[~2024-10-03] VITALS: Ht 185.4 cm; Wt 118.4 kg
[~2024-10-03 15:38] MED LIST changes: +PREDNISONE20 M1 PO
[2024-10-03 15:48] VITALS: BP 166/100
[2024-10-03] MEDS ORDERED: diphenhydrAMINE hydrochloride 50 MG/ML VIAL IV ONE (16:00)
[2024-10-03] MEDS ORDERED: Metoclopramide Hydrochloride 10 MG/2 ML VIAL IV ONE (16:00)
[2024-10-03] MEDS ORDERED: SODIUM CHLORIDE 0.9% 1,000 ML IV ONE ×2 (16:00→19:25)
[2024-10-03 16:36] LABS: ALKALINE PHOSPHATASE 169 U/L (46-116); BUN 15 mg/dl (9-23); CHLORIDE 92 mmol/L (98-107); LIPASE 69 U/L (12-53); POTASSIUM 3.7 mmol/L (3.4-5.1); SGPT/ALT 19 U/L (5-49); TOTAL PROTEIN 7.3 gm/dL (6.0-8.0)
[2024-10-03] MEDS ORDERED: FINASTERIDE5 M1 PO (16:57)
[2024-10-03] MEDS ORDERED: BRILINTA90 M1 PO (16:57)
[2024-10-03] MEDS ORDERED: POTASSIUM CHLO20 ME4 PO (16:58)
[2024-10-03] MEDS ORDERED: METFORMIN HYDR500 MG PO (16:58)
[2024-10-03] MEDS ORDERED: TAMSULOSIN HCL0.4 MG PO (16:58)
[2024-10-03] MEDS ORDERED: BUSPAR15 MG PO (16:58)
[2024-10-03] MEDS ORDERED: VENLAFAXINE HYD75 M3 PO (16:58)
[2024-10-03] MEDS ORDERED: ATORVASTATIN CA80 M1 PO (16:59)
[2024-10-03] MEDS ORDERED: SILDENAFIL CITR25 MG PO (16:59)
[2024-10-03 17:05] LABS: BASO % 0.4 % (0.0-1.0); EOS % 0.1 % (1.0-4.0); HEMATOCRIT 58.2 % (42.0-52.0); MEAN CELL VOLUME 93.7 fl (80.0-94.0); MEAN CORPUSCULAR HGB 30.6 pg (27.0-31.0); MEAN CORPUSCULAR HGB CONC 32.6 g/dl (33.0-37.0); MEAN PLATELET VOLUME 11.8 fl (9.6-12.3); MONO # 0.8 10*3/uL (0.1-1.0); MONO % 8.6 % (3.0-9.0); NEUT # 6.2 10*3/uL (2.3-7.9); NEUT % 68.5 % (47.0-73.0); PLATELET COUNT AUTOMATED 184 10*3/uL (130-400); RED BLOOD COUNT 6.21 10*6/uL (4.50-5.90); RED CELL DISTRI WIDTH 13.6 % (0-14.5)
[2024-10-03] MEDS ORDERED: INSULIN REGULAR, HUMAN 1 UNIT/0.01 ML IV ONE (17:10)
[2024-10-03] MEDS ORDERED: Ondansetron Hydrochloride 4 MG/2 ML VIAL IV PRN (19:00)
[2024-10-03] MEDS ORDERED: BISACODYL 5 MG TAB PO PRN (19:00)
[2024-10-03] MEDS ORDERED: ACETAMINOPHEN 325 MG TAB PO PRN (19:00)
[2024-10-03] MEDS ORDERED: Magnesium Hydroxide 30 ML UDC PO PRN (19:00)
[2024-10-03] MEDS ORDERED: DEXTROSE 10 % IN WATER 250 ML IV PRN (19:05)
[2024-10-03 20:50] VITALS: BP 105/53
[2024-10-03] MEDS ORDERED: INSULIN LISPRO 1 UNIT/0.01 ML SQ SCH (22:00)
[2024-10-03] MEDS ORDERED: Insulin Glargine, Recombinan 1 UNIT/0.01 ML SC SCH (22:00)
[2024-10-04 01:25] VITALS: BP 131/50
[2024-10-04 06:21] LABS: BASO # 0.1 10*3/uL (0.0-0.1); BASO % 0.6 % (0.0-1.0); EOS % 0.3 % (1.0-4.0); HEMATOCRIT 54.5 % (42.0-52.0); MEAN CELL VOLUME 94.8 fl (80.0-94.0); MEAN CORPUSCULAR HGB 30.8 pg (27.0-31.0); MEAN CORPUSCULAR HGB CONC 32.5 g/dl (33.0-37.0); MEAN PLATELET VOLUME 11.9 fl (9.6-12.3); MONO # 0.9 10*3/uL (0.1-1.0); MONO % 8.7 % (3.0-9.0); NEUT # 6.4 10*3/uL (2.3-7.9); NEUT % 61.7 % (47.0-73.0); PLATELET COUNT AUTOMATED 163 10*3/uL (130-400); RED BLOOD COUNT 5.75 10*6/uL (4.50-5.90); RED CELL DISTRI WIDTH 13.7 % (0-14.5); WHITE BLOOD COUNT 10.4 10*3/uL (4.8-10.8)
[2024-10-04 07:51] LABS: ACT PARTIAL THROMBO TIME 30.5 SECONDS (20.0-32.1)
[2024-10-04 08:00] VITALS: BP 127/50
[2024-10-04 08:20] LABS: VITAMIN D, 25-HYDROXY 25.8 ng/mL (30-100)
[2024-10-04 08:21] LABS: ALKALINE PHOSPHATASE 139 U/L (46-116); BUN 12 mg/dl (9-23); CHLORIDE 100 mmol/L (98-107); CHOLESTEROL 149 mg/dL (<200); FREE T4 1.59 ng/dl (0.89-1.76); LDL CHOLESTEROL 81 mg/dL (9-159); POTASSIUM 3.3 mmol/L (3.4-5.1); SGPT/ALT 14 U/L (5-49); TOTAL PROTEIN 6.3 gm/dL (6.0-8.0); TRIGLYCERIDES 195 mg/dl (<150)
[2024-10-04] MEDS ORDERED: POTASSIUM CHLORIDE 20 MEQ TAB PO ONE (09:45)
[2024-10-04] MEDS ORDERED: Enoxaparin Sodium 40 MG/0.4 ML SYR SC SCH (10:00)
[2024-10-04 12:00] VITALS: BP 137/80
== END 2024-10-04 13:54 | disposition home or self-care (01) | DRG 638 ==
LOC: ED 15:38 → EDHOLD 18:12 → ICCU 22:46
PROVIDERS: Nurse Practitioner Family; ADMIT Internal Medicine; ATTEND Internal Medicine
DX: E11.65 Type 2 diabetes mellitus with hyperglycemia (principal); E87.1 Hypo-osmolality and hyponatremia; E87.20 Acidosis, unspecified; E86.0 Dehydration; J44.9 Chronic obstructive pulmonary disease, unspecified; I25.10 Atherosclerotic heart disease of native coronary artery without angina pectoris; I10 Essential (primary) hypertension; F17.210 Nicotine dependence, cigarettes, uncomplicated; E78.5 Hyperlipidemia, unspecified; D75.1 Secondary polycythemia; Z88.0 Allergy status to penicillin; Z88.8 Allergy status to other drugs, medicaments and biological substances; I25.2 Old myocardial infarction; Z09 Encounter for follow-up examination after completed treatment for conditions other than malignant neoplasm; Z79.899 Other long term (current) drug therapy; Z79.01 Long term (current) use of anticoagulants; Z79.2 Long term (current) use of antibiotics; Z82.49 Family history of ischemic heart disease and other diseases of the circulatory system; Z80.42 Family history of malignant neoplasm of prostate

== ENCOUNTER 2025-04-24 23:03 | Emergency (ER) | payer OTHER ==
[~2025-04-24] VITALS: Ht 185.4 cm; Wt 113.4 kg
[~2025-04-24 23:03] MED LIST changes: +BRILINTA90 M1 PO; +BUSPAR15 MG PO; +FINASTERIDE5 M1 PO; +METFORMIN HYDR500 MG PO; +POTASSIUM CHLO20 ME4 PO; +SILDENAFIL CITR25 MG PO; +TAMSULOSIN HCL0.4 MG PO; +VENLAFAXINE HYD75 M3 PO
[2025-04-24] MEDS ORDERED: INSULIN REGULAR, HUMAN 1 UNIT/0.01 ML IV ONE (23:30)
[2025-04-24] MEDS ORDERED: SODIUM CHLORIDE 0.9% 1,000 ML IV ONE ×2 (23:30)
[2025-04-24 23:31] VITALS: BP 179/88
[2025-04-24 23:51] LABS: BASO # 0.0 10*3/uL (0.0-0.1); BASO % 0.2 % (0.0-1.0); EOS # 0.0 10*3/uL (0.0-0.4); EOS % 0.1 % (1.0-4.0); MEAN CELL VOLUME 92.8 fl (80.0-94.0); MEAN CORPUSCULAR HGB 31.4 pg (27.0-31.0); MEAN PLATELET VOLUME 11.6 fl (9.6-12.3); MONO # 0.7 10*3/uL (0.1-1.0); MONO % 6.1 % (3.0-9.0); NEUT # 9.1 10*3/uL (2.3-7.9); NEUT % 82.1 % (47.0-73.0); NUCLEATED RED BLOOD CELL 0.0 % (0.0-0.0); NUCLEATED RED BLOOD CELL 0.0 10*3/uL (0.0-0.0); PLATELET COUNT AUTOMATED 168 10*3/uL (130-400); RED CELL DISTRI WIDTH 14.4 % (0-14.5)
[2025-04-25 00:11] LABS: BUN 20 mg/dl (9-23)
[2025-04-25 01:22] LABS: BILIRUBIN Negative (Negative); BLOOD Negative (Negative); CLARITY Clear (Clear); COLOR Yellow (Yellow); KETONE 2+ (Negative); NITRITE Negative (Negative); PH 5.5 (4.5-8.0); SPECIFIC GRAVITY 1.025 (1.001-1.030); UROBILINOGEN 1.0 E.U./dl (0.0-1.0)
[2025-04-25 01:30] LABS: BACTERIA 1+; EPITHELIAL CELLS 16-20; FINE GRANULAR CAST 0-2; LEUKO ESTERASE Trace (Negative); MUCOUS 1+; RBC 0-2 rbc/hpf (0-2)
[2025-04-25] MEDS ORDERED: INSULIN REGULAR, HUMAN 1 UNIT/0.01 ML IV ONE (01:45)
[2025-04-25] MEDS ORDERED: POTASSIUM CHLORIDE 20 MEQ TAB PO ONE (01:45)
[2025-04-25] MEDS ORDERED: SODIUM CHLORIDE 0.9% 1,000 ML IV ONE (01:45)
[2025-04-25 04:28] LABS: BUN 18 mg/dl (9-23)
== END 2025-04-25 05:19 | disposition home or self-care (01) ==
LOC: ED 23:03
PROVIDERS: Internal Medicine
DX: E11.10 Type 2 diabetes mellitus with ketoacidosis without coma (principal); E11.65 Type 2 diabetes mellitus with hyperglycemia; I10 Essential (primary) hypertension; I25.2 Old myocardial infarction; F17.210 Nicotine dependence, cigarettes, uncomplicated

== ENCOUNTER 2025-09-06 07:49 | Emergency (ER) | payer OTHER ==
[~2025-09-06] VITALS: Ht 182.8 cm; Wt 99.8 kg
[2025-09-06] MEDS ORDERED: Lactated Ringer's Solution 1,000 ML IV SCH (08:20)
[2025-09-06] MEDS ORDERED: Ondansetron Hydrochloride 4 MG/2 ML VIAL IV ONE (08:20)
[2025-09-06 08:58] LABS: BASO # 0.0 10*3/uL (0.0-0.1); BASO % 0.2 % (0.0-1.0); EOS # 0.0 10*3/uL (0.0-0.4); EOS % 0.2 % (1.0-4.0); MEAN CELL VOLUME 89.9 fl (80.0-94.0); MEAN CORPUSCULAR HGB 30.5 pg (27.0-31.0); MEAN PLATELET VOLUME 11.6 fl (9.6-12.3); MONO # 0.9 10*3/uL (0.1-1.0); MONO % 7.6 % (3.0-9.0); NEUT # 9.6 10*3/uL (2.3-7.9); NEUT % 80.2 % (47.0-73.0); NUCLEATED RED BLOOD CELL 0.0 % (0.0-0.0); NUCLEATED RED BLOOD CELL 0.0 10*3/uL (0.0-0.0); PLATELET COUNT AUTOMATED 192 10*3/uL (130-400); RED CELL DISTRI WIDTH 14.0 % (0-14.5)
[2025-09-06 08:59] LABS: VENOUS BLOOD GAS O2 SAT 90.0 % (60.0-85.0)
[2025-09-06 09:18] LABS: BUN 23.0 mg/dl (9-23); SGPT/ALT 9.0 U/L (5-49)
[2025-09-06] MEDS ORDERED: POTASSIUM CHLORIDE 20 MEQ TAB PO ONE (10:30)
[2025-09-06] MEDS ORDERED: Potassium Bicarbonate/Potass 25 MEQ TAB PO ONE (10:30)
[2025-09-06 11:32] LABS: BILIRUBIN Negative (Negative); BLOOD Negative (Negative); CLARITY Cloudy (Clear); COLOR Dark Yellow (Yellow); KETONE Negative (Negative); LEUKO ESTERASE 1+ (Negative); NITRITE Negative (Negative); PH 5.5 (4.5-8.0); SPECIFIC GRAVITY >= 1.030 (1.001-1.030); UROBILINOGEN 1.0 E.U./dl (0.0-1.0)
[2025-09-06 11:47] LABS: EPITHELIAL CELLS 21-30; MUCOUS 1+; RBC 0-2 rbc/hpf (0-2); WBC 21-30 wbc/hpf (0-5)
[2025-09-06 11:48] LABS: BACTERIA 3+
[2025-09-06] MEDS ORDERED: hydroCHLOROthiazide 25 MG TAB PO ONE (11:50)
[2025-09-06 12:06] VITALS: BP 179/105
== END 2025-09-06 12:36 | disposition home or self-care (01) ==
LOC: ED 07:49
PROVIDERS: Emergency Medicine
DX: E86.0 Dehydration (principal); E87.6 Hypokalemia; I10 Essential (primary) hypertension; I25.2 Old myocardial infarction; Z88.0 Allergy status to penicillin; Z88.8 Allergy status to other drugs, medicaments and biological substances; Z20.822 Contact with and (suspected) exposure to COVID-19; Z79.899 Other long term (current) drug therapy